=== PATIENT | male | born 2005 | race Caucasian/White ===

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

== ENCOUNTER 2024-07-11 15:24 | Emergency (ER) | payer BC, OTHER, SELFPAY ==
[2024-07-11 15:46] VITALS: BP 115/69; PULSE 95; RESP 18; TEMP 36.4; O2SAT 100; BMI 24.7
[2024-07-11 16:28] LABS: Basophils % 0.3 %; Eosinophils % 0.2 %; Hematocrit 52.6 % (37-53); Lymphocytes # 0.4 10^3/uL (1.5-6.5); Lymphocytes % 4.7 %; Mean Corpuscular HGB Conc 33.3 g/dL (30-55); Mean Corpuscular Hemoglobin 30.3 pg (27-33); Mean Corpuscular Volume 91.2 fl (82-101); Mean Platelet Volume 9.7 fL (7.4-10.4); Monocytes # 0.6 10^3/uL (0.2-0.9); Neutrophils # 8.21 10^3/uL (1.8-8.0); Neutrophils % 88.5 %; Nucleated Red Blood Cells % 0 %; Platelet Count 181 10^3/cmm (157-399); Red Blood Count 5.77 10^6/uL (3.85-5.65); Red Cell Distribution Width 11.9 % (12.1-15.1); White Blood Count 9.29 10^3/uL (4.5-13.0)
[2024-07-11] MEDS: ketorolac 30 mg/mL INJ 15 MG IVP (16:33)
[2024-07-11] MEDS: sodium chloride 0.9% 1,000 ML 999 ML IV (16:33)
[2024-07-11] MEDS: ondansetron 2 mg/ML SDV 2 mL 4 MG IVP (16:33)
[2024-07-11] MEDS: dicyclomine 20 mg Tablet PO (16:33)
[2024-07-11] MEDS: lidocaine 2% viscous 15 ML, aluminum-mag hydrox-simethicon 30 ML, sucralfate oral liq 1 GM PO (16:33)
--- NOTE | 2024-07-11 16:34 | W.ED.COVID ---
HPI - COVID General: Chief Complaint: COVID symptoms Stated Complaint: Vomitting Time Seen by Provider: 07/11/24 15:59 History of Present Illness: 38-year-old otherwise healthy male is presenting with multiple episodes of nonbloody nonbilious vomiting as well as nonbloody diarrhea started today associate with abdominal cramping body aches chills, denies nasal congestion sore throat cough, denies chest pain or shortness of breath. He is here with his girlfriend who also has similar symptoms. COVID 19 common symptoms: positive body aches, nausea, vomiting and diarrhea; negative fever(s), chills, productive cough, dyspnea, headache(s), throat pain or nasal congestion COVID 19 other sytmptoms: negative chest pain COVID Results: No Data to Display Related Data Home Medications Medication Instructions Recorded Confirmed bismuth subsalicylate 262 mg/15 mL 524 mg PO QID PRN Diarrhea 07/11/24 07/11/24 oral suspension (Pepto-Bismol) Previous Rx's Medication Instructions Recorded Fast Form Ulnar Gutter Splint #1 ea 04/15/21 dicyclomine 20 mg tablet 20 mg PO QID PRN abdominal pain 07/11/24 #20 tabs ondansetron 4 mg disintegrating 4 mg PO Q8H PRN nausea and 07/11/24 tablet vomiting 4 days #14 tabs Allergies Allergy/AdvReac Type Severity Reaction Status Date / Time No Known Allergies Allergy Verified 07/11/24 15:49 Review of Systems Const: Reports: body aches; Denies: fever(s) or chills Eyes: Denies: change in vision or blurry vision ENMT: Denies: throat pain or nasal congestion Card: Denies: chest pain, palpitations or irregular heart rhythm Resp: Denies: dyspnea or productive cough GI: Reports: abdominal pain, nausea, vomiting and diarrhea; Denies: hematochezia : Denies: flank pain or dysuria Musc: Denies: neck pain, back pain, extremity pain or extremity swelling Skin/Breast: Denies: rash Neuro: Denies: headache(s) Vinod/Lymph: Denies: easy bruising or easy bleeding PFSH ED PFSH: Social History Smoking and tobacco/nicotine status: never used tobacco/nicotine Substance/Drug Use: current Physical Exam Narrative: EXAM NARRATIVE: Const: no acute distress, cooperative, well appearing HENMT: normocephalic, atraumatic, normal facial exam, posterior oropharynx normal w/ no tonsillar erythema or exudates Eye: Equal, round and reactive pupils present and EOMs intact bilaterally Neck/C-Spine: trachea midline, no stridor, no midline c spine tenderness , no paraspinal neck muscle tenderness Chest: no rib or chest wall tenderness Resp: normal respiratory effort, No retractions, No use of accessory muscles and clear to auscultation bilaterally Cardio: COMMON NORMALS: regular rate and regular rhythm RATE: regular rate RHYTHM: regular rhythm GI: + Right upper quadrant abdominal tenderness without rebound or guarding otherwise normal to inspection, no tenderness, nondistended, normoactive bowel sounds present Extremity: COMMON NORMALS: no pedal edema Neuro: GCS 15, AO x 4, normal speech, CN intact, normal motor exam, normal sensory exam, no ataxia Psych: cooperative, appropriate mood and affect Skin: no rashes or lesions Course Vital Signs: Vital signs: Vital Signs Temperature 97.6 F 07/11/24 15:46 Pulse Rate 95 07/11/24 15:46 Respiratory Rate 18 07/11/24 17:04 Blood Pressure 133/67 07/11/24 17:04 Pulse Oximetry 100 07/11/24 17:05 Oxygen Delivery Me thod Room Air 07/11/24 17:05 MDM - COVID Medical Decision Making Patient is presenting with nausea vomiting diarrhea, he after IV fluids and medications he feels markedly improved and feels well. His labs without significant abnormalities no leukocytosis no electrolyte abnormalities. He is reassessed his abdomen is soft nontender his nausea has resolved. Discussed results, patient is felt to be stable for discharge and outpatient follow-up however return precautions discussed. Lab Data 07/11/24 16:18 07/11/24 16:18 Laboratory Results WBC 9.29 10^3/uL (4.5-13.0) 07/11/24 16:18 RBC 5.77 10^6/uL (3.85-5.65) H 07/11/24 16:18 Hgb 17.50 g/dL (13.2-15.6) H 07/11/24 16:18 Hct 52.6 % (37-53) 07/11/24 16:18 MCV 91.2 fl (82-101) 07/11/24 16:18 MCH 30.3 pg (27-33) 07/11/24 16:18 MCHC 33.3 g/dL (30-55) 07/11/24 16:18 RDW 11.9 % (12.1-15.1) L 07/11/24 16:18 Plt Count 181 10^3/cmm (157-399) 07/11/24 16:18 MPV 9.7 fL (7.4-10.4) 07/11/24 16:18 Neut % (Auto) 88.5 % 07/11/24 16:18 Lymph % (Auto) 4.7 % 07/11/24 16:18 [place] % (Auto) 6.0 % 07/11/24 16:18 Eos % (Auto) 0.2 % 07/11/24 16:18 Baso % (Auto) 0.3 % 07/11/24 16:18 Neut # (Auto) 8.21 10^3/uL (1.8-8.0) H 07/11/24 16:18 Lymph # (Auto) 0.4 10^3/uL (1.5-6.5) L 07/11/24 16:18 [place] # (Auto) 0.6 10^3/uL (0.2-0.9) 07/11/24 16:18 Eos # (Auto) 0.0 10^3/uL (0.0-0.8) 07/11/24 16:18 Baso # (Auto) 0.0 10^3/uL (0.0-0.1) 07/11/24 16:18 Nucleated RBC % (auto) 0 % 07/11/24 16:18 Nucleated RBCs # 0.0 /100WBC 07/11/24 16:18 Sodium 141 mmol/L (136-145) 07/11/24 16:18 Potassium 4.1 mmol/L (3.5-5.1) 07/11/24 16:18 Chloride 104 mmol/L (98-107) 07/11/24 16:18 Carbon Dioxide 25 mmol/L (22-29) 07/11/24 16:18 Anion Gap 16.1 (5-19) 07/11/24 16:18 BUN 19 mg/dL (6-20) 07/11/24 16:18 Creatinine 1.2 mg/dL (0.7-1.2) 07/11/24 16:18 GFR Calculation 77.2 mL/min (90-130) L 07/11/24 16:18 Glucose 106 mg/dL (65-115) 07/11/24 16:18 Calculated Osmolality 295 mOsm/kg (285-295) 07/11/24 16:18 Calcium 9.9 mg/dL (8.5-10.5) 07/11/24 16:18 Magnesium 1.9 mg/dL (1.7-2.3) 07/11/24 16:18 Total Bilirubin 0.7 mg/dL (0.15-1.2) 07/11/24 16:18 AST 21 U/L (0-40) 07/11/24 16:18 ALT 22 U/L (0-41) 07/11/24 16:18 Alkaline Phosphatase 75 U/L (40-130) 07/11/24 16:18 Total Protein 7.7 g/dL (6.6-8.7) 07/11/24 16:18 Albumin 4.6 g/dL (3.5-5.2) 07/11/24 16:18 Globulin 3.1 g/dL (1.3-4.6) 07/11/24 16:18 Lipase 20 U/L (13-60) 07/11/24 16:18 No Data to Display No radiology studies performed this visit Discharge Plan Discharge Patient Disposition: Home Clinical Impression: Gastroenteritis Condition: Stable Prescriptions: New ondansetron 4 mg tablet,disintegrating 4 mg PO Q8H PRN (Reason: nausea and vomiting) 4 Days Qty: 14 0RF dicyclomine 20 mg tablet 20 mg PO QID PRN (Reason: abdominal pain) Qty: 20 0RF No Action (DME) Fast Form Ulnar Gutter Splint See Rx Instructions .ROUTE .MEDSUPPLY Qty: 1 0RF Rx Instructions: As directed bismuth subsalicylate [Pepto-Bismol] 262 mg/15 mL Suspension 524 mg PO QID PRN (Reason: Diarrhea) Discharge Orders: Discharge ED (Routine); Ordered 07/11/24 Ordered By: Demi Curry Discharge Diet: Advance as tolerated Patient Instructions: Gastroenteritis (ED) Coding Level of Care Code ED [employer] for Kelton Guzman
[2024-07-11 16:50] LABS: Alanine Aminotransferase 22 U/L (0-41); Albumin Level 4.6 g/dL (3.5-5.2); Alkaline Phosphatase 75 U/L (40-130); Aspartate Amino Transferase 21 U/L (0-40); Blood Urea Nitrogen 19 mg/dL (6-20); Calcium 9.9 mg/dL (8.5-10.5); Carbon Dioxide 25 mmol/L (22-29); Chloride 104 mmol/L (98-107); Globulin 3.1 g/dL (1.3-4.6); Glomerular Filtration Rate 77.2 mL/min (90-130); Glucose 106 mg/dL (65-115); Lipase 20 U/L (13-60); Magnesium 1.9 mg/dL (1.7-2.3); Osmolality Calculated 295 mOsm/kg (285-295); Sodium 141 mmol/L (136-145); Total Bilirubin 0.7 mg/dL (0.15-1.2); Total Protein 7.7 g/dL (6.6-8.7)
[2024-07-11 16:52] LABS: Anion Gap 16.1 (5-19); Potassium 4.1 mmol/L (3.5-5.1)
[2024-07-11 17:04] VITALS: BP 133/67; RESP 18; O2SAT 98
[2024-07-11 17:05] VITALS: O2SAT 100
[2024-07-11 17:19] VITALS: BP 135/73; PULSE 71; O2SAT 100
== END 2024-07-11 17:20 | disposition home or self-care (01) ==
PROVIDERS: Emergency Medicine; Emergency Provider Emergency Medicine
DX: K52.9 Noninfective gastroenteritis and colitis, unspecified (principal)
CPT/HCPCS: 36415; 80053; 83690; 83735; 85025; 96374; 96375; 99284; J1885; J2405; J7030